=== PATIENT | female | born 1990 ===

== ENCOUNTER 2021-01-26 19:42 | Emergency (ER) | payer OTHER ==
[2021-01-26 20:39] LABS: BASOPHIL 0.5 % (0-2); EOSINOPHIL 0.6 % (0-5); HCT 37.3 % (37.0-47.0); HGB 12.4 g/dl (12.5-16.0); LYMPHOCYTE 22.1 % (15-48); MCH 29.2 pg (25.0-31.0); MCHC 33.2 g/dL (32.0-36.0); MONOCYTE 5.3 % (0-12); MPV 11.9 fL (6.0-9.5); NEUTROPHIL 71.2 % (41-80); NRBC 0; PLT 192 K/uL (150-400); RBC 4.24 M/uL (4.20-5.40); RDW 13.7 % (11.5-14.0); WBC 13.2 K/uL (4.0-10.5)
[2021-01-26 21:07] LABS: ALBUMIN 4.1 g/dL (3.4-5.0); BILIRUBIN - TOTAL 0.7 mg/dL (0.2-1.0); BUN/CREAT RATIO (CALC) 15.7 RATIO; CREATININE 0.7 mg/dL (0.51-0.95); GLOBULIN (CALCULATION) 3.3 g/dL; POTASSIUM 3.2 mmol/L (3.5-5.1); TOTAL PROTEIN 7.4 g/dL (6.4-8.2)
[2021-01-26] MEDS ORDERED: PROTONIX 40MG T40 MG PO (23:03)
[2021-01-26] MEDS ORDERED: ZOFRAN4 M1 PO (23:03)
== END 2021-01-26 23:25 | disposition home or self-care (01) ==
LOC: FER 19:42
PROVIDERS: Nurse Practitioner Family
DX: R11.2 Nausea with vomiting, unspecified (principal); R10.9 Unspecified abdominal pain; Z88.7 Allergy status to serum and vaccine; Z88.1 Allergy status to other antibiotic agents; Z91.040 Latex allergy status
CPT/HCPCS: 36415; 80053; 83690; 85025; 87339; J2405; J7030; Q9967